=== PATIENT | male | born 1965 | race Caucasian/White ===

== ENCOUNTER → 2022-08-16 | Outpatient (CLI) | payer OTHER ==
--- NOTE | 2022-08-16 12:17 | XR ---
EXAM TYPE: LUMBAR SPINE X RAY SERIES COMPARISON: NONE HISTORY: Pain TECHNIQUE: 4 views are submitted. FINDINGS: There is multilevel moderate to severe degenerative disc is most marked at L5-S1 grade 1 anterolisthe sis and bilateral spondylolysis. Foraminal encroachment L4-5 and L5-S1 noted. There is severe superio r endplate compression fracture of T12 indeterminate age. IMPRESSION: 1. Superior endplate compression fracture with approximately 20% reduction in vertebral body height T 12 indeterminate age consider follow-up MRI. 2. Multilevel degenerative disc disease most marked at L5-S1 with bilateral spondylolysis and grade 1 anterolisthesis.
--- NOTE | 2022-08-16 12:18 | XR ---
EXAMINATION TYPE: XR thoracic spine complete DATE OF EXAM: 08/16/2022 COMPARISON: NONE HISTORY: Pain TECHNIQUE: 3 views submitted FINDINGS: Alignment is anatomic. There is no compression deformities. There is hypertrophic and degenerative c hanges of the spine most marked involving the mid and lower thoracic spine. IMPRESSION: 1. Multilevel moderate to severe degenerative disease mid and lower thoracic spine. 2. There is a vague area of nodularity adjacent to the anterior margin of the right first rib. Recomm end chest x-ray with apical lordotic view.
== END | disposition home or self-care (01) ==
LOC: RADXRMAIN 11:40
PROVIDERS: ATTEND Family Medicine
DX: M51.37 Other intervertebral disc degeneration, lumbosacral region (principal); M47.816 Spondylosis without myelopathy or radiculopathy, lumbar region; M43.16 Spondylolisthesis, lumbar region; M47.814 Spondylosis without myelopathy or radiculopathy, thoracic region
CPT/HCPCS: 72072; 72110

== ENCOUNTER → 2024-07-29 | Outpatient (CLI) | payer OTHER ==
[2024-07-29 10:00] VITALS: BP 101/68; PULSE 80; RESP 16; TEMP 97.2
--- NOTE | 2024-07-29 10:49 | XR ---
EXAMINATION TYPE: XR lumbar spine 2 or 3V DATE OF EXAM: 07/29/2024 10:15 AM COMPARISON: 08/16/2022 CLINICAL INDICATION: Male, 58 years old with history of M54.51; PHH, pain TECHNIQUE: XR lumbar spine 2 or 3V - Frontal, lateral and coned in L5-S1 lateral views of the spine. FINDINGS: No evidence of any acute osseous pathology. No evidence of loss of vertebral body height i s seen. There is normal alignment of the lumbar vertebral bodies. Scattered disc space narrowing. Mul tilevel large osteophyte formation throughout the visualized spine. There is facet joint arthropathy throughout the spine. Scattered at least mild neural foraminal stenosis. IMPRESSION: 1. No acute fracture. 2. Similar moderate multilevel disc degeneration. [facility], , 07/29/2024 10:46 AM
--- NOTE | 2024-07-29 14:45 | P.PAINPG ---
PQRS Measure Charge Sheet Comment: HISTORY OF PRESENT ILLNESS: A 58 yr old male as a referral from Dr Batres presents today w severe and chronic BLP> 2 yrs secondary to radiculopathy, spondylosis and facet arthropathy without myelopathy for evaluation. Pt states pain level is provoked at 8 /10 in intensity, constant, localized in the lumbar spine, predominantly axial, achy in character w occasional shooting pain towards the back of the LEs. Pain is provoked by over activity. Pain is alleviated by PT x 6 wks which ended in 2022 (which didn't help), physician guided home exercises 4-5 times weekly since Fall 2022, medications, repositioning and rest . Oswestry axial pain score at 23. PMH: OA, HTN, Hyperlipidemia, NIDDM II, Anxiety PSH: Denies SH: Daily tobacco use, No ETOH abuse, No illicit drug use FH: Non contributory All: See list Meds: See list incl Tyl #4 BID, Neurontin 800mg TID, Robaxin 750mg, Toradol, Ibu, ASA, Ozempic, Metformin REVIEW OF ORGAN SYSTEMS: CONSTITUTIONAL: No fevers or chills. No recent weight loss. NEUROLOGICAL: + numbness and tingling along the distal extremities. No seizure disorders or headaches. MUSCULOSKELETAL: + pain PSYCHIATRIC: Denies current depression or suicidal thoughts. Physical Examinations : Constitutional : Cooperative , not in acute distress . Neurologic : Cranial nerve II to XII intact. No focal neurological deficits. Psychiatric : alert & oriented x 3. Matching mood & appropriate affect. Judgment & insight intact. Musculoskeletal : Cervical Spine Motor strength in the deltoid and biceps: Normal right side. Normal Left side Motor strength biceps and the wrist extensors: Normal right side . Normal left side Motor strength in the triceps muscle: Normal right side. Normal left side Deep tendon reflexes: Normal at the biceps. Normal at Brachioradialis. Normal at triceps Vertebral body tenderness to deep palpation over Cervical facet loading test: positive bilaterally Spurling test: positive bilaterally Neck distraction test: positive bilaterally Cleopatra sign: positive bilaterally Lumbar spine Motor strength lower extremities ,thigh and legs 5/5 Right side , 5/5 Left side Deep tendon reflexes : Normal Knee Jerk. Normal Ankle Jerk Vertebral body tenderness over Mares Test positive Lumbar facet Loading Test: positive Right / positive Left Range of motion of the lumbar spine Flexion 30 degrees, extension 10 degrees Straight Leg Raise test: Left/ Right positive at degrees Loco test: positive right / positive left. Severe tenderness over the Sacroiliac joint on the Right / Left sides Gaenslen test: positive bilaterally Seated flexion test: positive bilaterally. Sacral spine : Severe tenderness over the Sacroiliac joint: right side / left side Range of motion: Flexion of the lumbar spine <60 degrees Range of motion: Extension of the lumbar spine <20 degrees Gaenslen's Test positive Loco test: positive right side / left side Thigh Thrust Test Sacral Thrust Test Imaging: X ray lumbar spine from 08/16/22 reviewed Assessment/ Plan : L5-S1 anterolisthesis Recommendation of x ray lumbar spine M54.16. All questions answered. I have spent greater than 30 minutes on patient care today. Dr Chávez was available by phone for the evaluation of this patient. The time was used to review the medical records including relevant urine studies and Prescription history (MAPs), review of the available imaging, evaluation and examination of the patient, coordination of care with the medical staff and if applicable referring physicians, as well as creation of the medical record Controlled Substance Measures - Controlled Substance Measures Is patient prescribed a controlled substance at discharge?: No
== END ==
LOC: PNWHC3 09:26
PROVIDERS: ATTEND Specialist
DX: M43.17 Spondylolisthesis, lumbosacral region (principal)
CPT/HCPCS: 72100; G0463; 99202

== ENCOUNTER → 2024-09-07 | Outpatient (CLI) | payer OTHER ==
--- NOTE | 2024-09-07 09:23 | MR ---
EXAMINATION TYPE: MR lumbar spine wo con DATE OF EXAM: 09/07/2024 COMPARISON: Lumbar spine x-ray July 29, 2024 HISTORY: Low back pain with pain into both legs since 2015. Radiculopathy. TECHNIQUE: Multiplanar, multisequence imaging of the lumbar spine is performed without IV contrast. FINDINGS: Sagittal images of the lumbar spine show vertebral body heights to appear satisfactory. The re is grade 1 retrolisthesis L4 on L5. There is and multilevel disc desiccation with relative sparing of L1-L2 and L3-L4 levels. There is mild disc space narrowing at L1-L2 and L5-S1 levels. The conus m edullaris is normal in position and signal ending inferior T12 level. The bone marrow signal intensi ty is within normal limits. Bilateral pars defect L5 level are seen. Axial images at T12-L1 level shows small focal left paracentral disc protrusion effacing the anterior thecal sac on axial image 29. Axial images at L1-L2 and L2-L3 levels appear within normal limits. Axial images at L3-L4 level show [id number] facet arthropathy bilaterally. Axial images at L4-L5 level show mild to moderate facet arthropathy bilaterally. Axial images at L5-S1 level shows [id number] facet arthropathy bilaterally. There is mild-to-mo derate broad disc bulge. Spinal canal is preserved. There is right foraminal disc protrusion componen t causing severe right-sided neural foraminal narrowing and encroaching on right L5 nerve. There is m oderate to severe left-sided neural foraminal narrowing with encroachment on the extraforaminal left L5 nerve sagittal image 4 and axial image 3. Paraspinal muscle bulk is preserved. IMPRESSION: Multilevel degenerative change as detailed above. Bilateral pars defect L5 level. There i s spondylolisthesis. Most prominent degenerative changes of lumbosacral junction appears to encroach on both exiting L5 nerves more prominent on the right. Correlate clinically. [facility], , 09/07/2024 9:21 AM
== END | disposition home or self-care (01) ==
LOC: RADMRIMAIN 07:32
PROVIDERS: ATTEND Specialist
DX: M47.27 Other spondylosis with radiculopathy, lumbosacral region (principal); M43.16 Spondylolisthesis, lumbar region
CPT/HCPCS: 72148

== ENCOUNTER → 2024-09-09 | Outpatient (CLI) | payer OTHER ==
[2024-09-09 07:57] VITALS: BP 112/77; PULSE 76; RESP 16; TEMP 98
--- NOTE | 2024-09-09 16:33 | P.PAINPG ---
Objective - Vital Signs Vital signs: Intake & Output 09/08/24 09/09/24 09/09/24 18:59 06:59 18:59 Weight 113.398 kg PQRS Measure Charge Sheet Comment: HISTORY OF PRESENT ILLNESS: A 59 yr old mal presents today w severe and chronic BLP> 2 yrs secondary to radiculopathy, spondylosis and facet arthropathy without myelopathy for evaluation. Pt states pain level is provoked at 8 /10 in intensity, constant, localized in the lumbar spine, predominantly axial, achy in character w occasional shooting pain towards the knees. Pain is provoked by over activity. Pain is alleviated by PT x 6 wks which ended in Fall 2022, physician guided home exercises 4-5 times weekly since Fall 2022, medications, repositioning and rest . Inteventional procedures include Medications include Neurontin 800mg TID, Robaxin 750mg, Toradol, ASA, Ozempic, Metformin REVIEW OF ORGAN SYSTEMS: CONSTITUTIONAL: No fevers or chills. No recent weight loss. NEUROLOGICAL: + numbness and tingling along the distal extremities. No seizure disorders or headaches. MUSCULOSKELETAL: + pain PSYCHIATRIC: Denies current depression or suicidal thoughts. Physical Examinations : Constitutional : Cooperative , not in acute distress . Neurologic : Cranial nerve II to XII intact. No focal neurological deficits. Psychiatric : alert & oriented x 3. Matching mood & appropriate affect. Judgment & insight intact. Musculoskeletal : Cervical Spine Motor strength in the deltoid and biceps: Normal right side. Normal Left side Motor strength biceps and the wrist extensors: Normal right side . Normal left side Motor strength in the triceps muscle: Normal right side. Normal left side Deep tendon reflexes: Normal at the biceps. Normal at Brachioradialis. Normal at triceps Vertebral body tenderness to deep palpation over Cervical facet loading test: positive bilaterally Spurling test: positive bilaterally Neck distraction test: positive bilaterally Cleopatra sign: positive bilaterally Lumbar spine Motor strength lower extremities ,thigh and legs 5/5 Right side , 5/5 Left side Deep tendon reflexes : Normal Knee Jerk. Normal Ankle Jerk Vertebral body tenderness over L5 Mares Test positive R L4-L5 Lumbar facet Loading Test: positive Right / positive Left Range of motion of the lumbar spine Flexion 30 degrees, extension 10 degrees Straight Leg Raise test: Left/ Right positive at 30 degrees Loco test: positive right / positive left. Severe tenderness over the Sacroiliac joint on the Right / Left sides Gaenslen test: positive bilaterally Seated flexion test: positive bilaterally. Sacral spine : Severe tenderness over the Sacroiliac joint: right side / left side Range of motion: Flexion of the lumbar spine <60 degrees Range of motion: Extension of the lumbar spine <20 degrees Gaenslen's Test positive Loco test: positive right side / left side Thigh Thrust Test Sacral Thrust Test Imaging: MRI non contrast lumbar spine from 09/07/24 reviewed Assessment/ Plan : L5-S1 anterolisthesis, L4-L5 retrolisthesis w R L5 neuroforaminal stenosis Recommendation of VIRY L4-L5 #1. Risks, benefits of procedure discussed and patient verbalized understanding. Protocol for discontinuation/continuation of medication surrounding procedure discussed. All questions answered. I have spent greater than 30 minutes on patient care today. Dr Chávez was available by phone for the evaluation of this patient. The time was used to review the medical records including relevant urine studies and Prescription history (MAPs), review of the available imaging, evaluation and examination of the patient, coordination of care with the medical staff and if applicable referring physicians, as well as creation of the medical record - Pain Location Bilateral Lower Back Non-Pharmacological Interventions: Heat, Ice, Inactivity, Physical Therapy, Position/Reposition Pharmacological Interventions: PRN Medication, Topical Medication PQRS Narrative: Hx Alcohol Use (MH) No Home Medications: Ambulatory Orders Acetaminophen-Codeine 300-30mg [Tylenol w/codeine #3] 2 tab PO Q6H PRN 09/09/24 Aspirin EC [Ecotrin Low Dose] 81 mg PO DAILY 09/09/24 Atorvastatin [Lipitor] 40 mg PO DAILY 09/09/24 Chlorzoxazone [Parafon Forte DSC] 500 mg PO BID 09/09/24 Gabapentin 800 mg PO TID 09/09/24 Gabapentin [Neurontin] 300 mg PO TID 09/09/24 Ibuprofen 800 mg PO Q8H 09/09/24 Phentermine HCl 37.5 mg PO DAILY 09/09/24 Phenylephrine HCl/Prometh HCl [Promethazine-PE 6.25-5 mg/5 ml] 5 ml PO 09/09/24 Semaglutide [Ozempic] 2 mg SQ 09/09/24 Sennosides/Docusate Sodium [Senna Plus 8.6-50 mg Softgel] 1 each PO 09/09/24 hydrOXYzine pamoate [Vistaril] 50 mg PO TID 09/09/24 lisinopriL 40 mg PO DAILY 09/09/24 metFORMIN HCL [Glucophage] 1,000 mg PO BID 09/09/24 Controlled Substance Measures - Controlled Substance Measures Is patient prescribed a controlled substance at discharge?: No
== END ==
LOC: PNWHC3 07:32
PROVIDERS: ATTEND Specialist
DX: M43.16 Spondylolisthesis, lumbar region (principal); M48.061 Spinal stenosis, lumbar region without neurogenic claudication; M43.17 Spondylolisthesis, lumbosacral region; M47.26 Other spondylosis with radiculopathy, lumbar region
CPT/HCPCS: 99211

== ENCOUNTER 2024-10-11 06:15 | Day surgery (SDC) | payer OTHER ==
[2024-10-08 14:59] VITALS: BMI 36.1
[2024-10-11 06:43] VITALS: RESP 16; TEMP 98.1
[2024-10-11 06:48] LABS: Glucose,Whole Blood 89 mg/dL (70-110)
[2024-10-11] MEDS: ALPRAZolam 0.5 MG TAB PO STA (06:49)
[2024-10-11] MEDS ORDERED: TRIAMCINOLONE ACETONIDE 40 MG/ML 1 ML VIAL ONE (07:20)
[2024-10-11] MEDS ORDERED: IOPAMIDOL M200 10 ML VIAL ONE (07:20)
[2024-10-11] MEDS ORDERED: LACTATED RINGERS 1,000 ML IV SCH (07:30)
--- NOTE | 2024-10-11 07:36 | P.PCN ---
Date of Procedure: 10/11/24 Description of Procedure: PREOPERATIVE DIAGNOSIS: 1-lumbar radiculopathy 2-Lumbar spondylosis with Facet arthropathy without myelopathy POSTOPERATIVE DIAGNOSIS: Lumbar radiculopathy 2-Lumbar spondylosis with Facet arthropathy without myelopathy PROCEDURE 1. Lumbar epidural steroid injection under fluoroscopic guidance at the L4-L5 level. 2. Lumbar epidurogram. ANESTHESIA: Local with 1% lidocaine 3 ml Oral Xanax 0.5mg EBL: Minimal PROCEDURE INDICATION: The patient with low back pain and radiculitis symptoms unresponsive to conservative treatment. Fluoroscopy was used to optimize visualization of the needle placement and to maximize safety. patient has had low back pain for many years. His MRI was reviewed that showed significant bulging of the right L5-S1 space. He also has significant facet arthropathy at L4 5 and L5-S1 bilaterally. The patient endorses chronic low back pain but predominantly of right leg weakness and at times difficulty with ambulation PROCEDURE DESCRIPTION / TECHNIQUE: The patient was seen and identified in the preoperative area. Risks, benefits, complications including but not limited to infections ,bleeding ,allergic reaction to the medications ,nerve damage and not complete pain releife , and alternatives were discussed with the patient. The patient agreed to proceed with the procedure and signed the consent. IV was started, and vital signs were stable. Patient was taken to the OR and time out was completed. The patient was placed in the prone position on procedure table and a pillow was placed under the abdomen to reduce lumbar lordosis. The lumbosacral area was prepped and draped in the usual sterile fashion.ere closely monitored during the procedure. Conscious sedation was used during the procedure to decrease patient´s anxiety. Vital signs was monitered during the entire procedure. Using anterior-posterior fluoroscopy, the L4-L5 interlaminar space was identified and the skin over this site was marked and then infiltrated with 1% lidocaine subcutaneously. Subsequently, a 20-gauge Tuohy epidural needle was inserted and advanced toward the epidural space using the ``Loss of resistance technique and guided by AP and lateral fluoroscopy. The correct needle position in the epidural space was verified with the injection of 2 mL of the water soluble contrast dye Omnipaque 180 contrast and observing an excellent epidurogram with the epidural spread of the dye, after negative aspiration for blood and CSF and in the absence of paresthesias. Again after negative aspiration, a 6 ml mixture containing 40 mg of Kenalog, and 5 ml of preservative free Normal Saline was injected and a washout of epidurogram was se en. Needle was withdrawn intact, skin was cleansed, and bandages were applied. COMPLICATIONS: None DISPOSITION / PLANS: The patient was placed in a supine position and transferred to the recovery area in a stable condition for observation. There was no evidence of lower extremity motor or sensory deficit after the procedure. Patient was discharged from the recovery room after meeting discharge criteria. Home discharge instructions were given to the patient by the staff. The patient was reexamined prior to discharge. instructed patient to repeat epidural injection in 2-4 weeks
--- NOTE | 2024-10-11 07:55 | FL ---
EXAMINATION TYPE: FL guided pain mgmt statistic DATE OF EXAM: 10/11/2024 CLINICAL INDICATION: Male, 59 years old with history of M54.16 LESI; PHH, pain TECHNIQUE: Fluoroscopy. COMPARISON: None. FINDINGS: Fluoroscopic guidance was provided during pain relief procedure performed by Dr. Chery . A total of 7.2 seconds of fluoroscopic time was utilized during the procedure and one image was acqu ired. Image acquired shows needle localization at L4 level. Degeneration changes of the visualized joints. Total DAP: [id number] mGym2. IMPRESSION: As Above. [facility], , 10/11/2024 7:53 AM
[2024-10-11 08:04] VITALS: BP 105/80; PULSE 80
== END 2024-10-11 08:05 | disposition home or self-care (01) ==
LOC: ORPAIN 06:15
PROVIDERS: ATTEND Anesthesiology
DX: M47.26 Other spondylosis with radiculopathy, lumbar region (principal); G89.29 Other chronic pain
CPT/HCPCS: 62323; J3301; Q9966

== ENCOUNTER → 2024-10-28 | Outpatient (CLI) | payer OTHER ==
[2024-10-28 08:03] VITALS: BP 125/76; PULSE 73; RESP 16
--- NOTE | 2024-10-28 15:56 | P.PN ---
Progress Note - Text Progress Note Date: 10/28/24 paper charting 10/28/24
== END ==
LOC: PNWHC3 07:43
PROVIDERS: ATTEND Specialist
DX: M54.16 Radiculopathy, lumbar region (principal)
CPT/HCPCS: 99211